=== PATIENT | female | born 1965 | race Caucasian/White ===

== ENCOUNTER → 2017-08-13 | Outpatient (CLI) | payer OTHER | LOC: FIMAGING 07:57 | PROVIDERS: ATTEND Family Medicine | DX: Z12.31 Encounter for screening mammogram for malignant neoplasm of breast (principal) ==

== ENCOUNTER → 2017-11-14 | Outpatient (CLI) | payer OTHER | LOC: FLAB 16:28 | PROVIDERS: ATTEND Family Medicine | DX: M16.0 Bilateral primary osteoarthritis of hip (principal); M85.68 Other cyst of bone, other site; Q78.6 Multiple congenital exostoses ==

== ENCOUNTER → 2018-10-02 | Outpatient (CLI) | payer OTHER | LOC: FIMAGING 14:59 | PROVIDERS: ATTEND Family Medicine | DX: Z12.31 Encounter for screening mammogram for malignant neoplasm of breast (principal) ==

== ENCOUNTER → 2018-10-24 | Outpatient (CLI) | payer OTHER | LOC: FIMAGING 10:07 ==